=== PATIENT | female | born 1970 | race Caucasian/White ===

== ENCOUNTER → 2019-06-15 | Outpatient (CLI) | payer MEDICARE ==
--- NOTE | 2019-06-17 08:40 | Diagnostic Imaging Report ---
TECHNIQUE: Magnetic resonance imaging of the LEFT KNEE was performed WITHOUT injected contrast. HISTORY: TEAR OF MEDIAL LATERAL MENISCUS , fall, pain, 2 weeks ago COMPARISON: None available. FINDINGS: LIGAMENTS AND TENDONS: ACL: Intact PCL: Intact Collateral ligaments: Intact Iliotibial band: Unremarkable Popliteal tendon: Intact Extensor mechanism: Intact JOINT: Menisci: Medial: Intact Lateral: Intact Articular Cartilage: Medial Compartment: No focal defect. Lateral Compartment: No focal defect. Patellofemoral Compartment: No focal defect. Joint Fluid: Small effusion. BONES: No focal or infiltrative bone marrow replacing abnormality. Subtle impaction fracture deformity at the posterior periphery of the lateral tibial plateau with intra-articular extension and moderate adjacent bone marrow edema (series 3 image 14). SOFT TISSUES: Mild edema adjacent to the posterior aspect of the lateral tibial plateau. IMPRESSION: Subtle, intra-articular impaction fracture at the posterior periphery of the lateral tibial plateau with associated bone marrow edema. Signed by: Dr. Silvestre Howe D.O., M.M.M. on 06/17/2019 8:36 AM
== END ==
LOC: MRI 13:37
PROVIDERS: ATTEND Specialist
DX: S83.242A Other tear of medial meniscus, current injury, left knee, initial encounter (principal); S83.282A Other tear of lateral meniscus, current injury, left knee, initial encounter